=== PATIENT | male | born 1950 | race Caucasian/White ===

== ENCOUNTER → 2024-09-22 09:25 | Day surgery (SDC) | payer BC, SELFPAY ==
[2024-09-22] MEDS: BICITRA 30 ML PO ×2 (10:34→10:35)
--- NOTE | 2024-09-22 11:28 | ITS.CL.CARDI ---
[employer] [facility] [employer] - Cardioversion
Cardioversion
Procedure Report:
Date of Procedure: 09/22/24
Procedure: Cardioversion
Indication: Symptomatic atrial fibrillation
Performing Physician: Ajay Richard MD
Technique: The patient was brought to the holding area. Signed informed consent was obtained. A time out was called and performed. The patient was anesthetized by the anesthesia service. Anticoagulation status was reviewed and appropriate. R2 pads
were placed anteriorly and posteriorly. A 200 J synchronized biphasic shock restored normal sinus rhythm without significant bradycardia. There were no complications.
Conclusion: Uncomplicated cardioversion from atrial fibrillation to sinus rhythm.
Recommendation: Routine post cardioversion care. Continue medical terminologist anticoagulation.
== END ==
LOC: CATH 09:25
PROVIDERS: ATTENDING PHYSICIAN Internal Medicine Cardiovascular Disease; FAMILY PHYSICIAN Family Medicine; OTHER PHYSICIAN Internal Medicine Cardiovascular Disease
DX: I48.0 Paroxysmal atrial fibrillation (principal); I25.10 Atherosclerotic heart disease of native coronary artery without angina pectoris; I25.2 Old myocardial infarction; I10 Essential (primary) hypertension; E78.00 Pure hypercholesterolemia, unspecified; G47.33 Obstructive sleep apnea (adult) (pediatric); Z87.891 Personal history of nicotine dependence; Z79.01 Long term (current) use of anticoagulants; Z79.82 Long term (current) use of aspirin
CPT/HCPCS: 92960; 93005

== ENCOUNTER 2025-01-12 09:58 | Emergency (ER) | payer BC, SELFPAY ==
[2025-01-12 10:06] VITALS: BP 138/78
[2025-01-12 10:25] VITALS: BP 140/74
--- NOTE | 2025-01-12 10:52 | ED.GENMED ---
History of Present Illness
General
Chief Complaint: Cardiac Symptoms
Source: patient
Exam Limitations: none
Time Seen by Provider: 01/12/25 10:50
Nursing documentation reviewed up to this point in time: agreed with
History of Present Illness
History of Present Illness:
74 yo male w h/o afib on Xarelto, CAD, Cardiac stents, HTN, HLD, ID, BPH, presents for intermittent left arm bicep area pain that became more frequent past several days. States he felt similar when he had triple bypass in 2019. Denies CP, SOB, Abd
pain, n/v/d/c.
States he sleeps with his left arm above his head and notes the pain goes away if he lowers his arm
His 4 mos ago and he is selling his house. Has been doing a lot of cleaning out, lifting heavy bags, he thinks the house has sold so under pressure to get things done and wants to be sure 'I didn't over do it.' Denies neck pain. States the
arm pain is not there now. Last episode was 3 am and it resolved when 'i got my arm down in a good position.'
Past History
Past History
ED Past Medical History: Arrthythmia (Atrial fibrillation), CAD, HTN and Hypercholesterolemia
ED Past Surgical History: Cardiac (CABG May 2019, cardioversion) and Orthopedic
Social History
Tobacco: Non-smoker
Drug: None
Personal:
Living: alone
Employment: Employed
Review of Systems
Review of Systems
Allergies reviewed?: Yes
All Other Systems: ROS reviewed and negative except as documented in HPI and ROS
Constitutional: Denies fever or fatigue
Respiratory: Denies trouble breathing
Cardiac: Denies chest pain, diaphoresis or palpitations
ABD/GI: Denies abdominal pain or nausea
: Reports no symptoms
Musculoskeletal: Reports other (pain upper arm posteriorly, intermittent); Denies edema, neck pain or back pain
Skin: Reports no symptoms
Neurological: Reports no symptoms
Phy Exam
Physical Exam
Physical Exam:
GENERAL: No acute distress. A&Ox3.
CONSTITUTIONAL: Afebrile.
EYES: clear, conjunctivae normal
ENMT: moist mucus membranes, Pharynx nl
RESPIRATORY: Regular respirations, nonlabored, lungs clear.
CARDIOVASCULAR: Regular rate and rhythm, no murmurs, no rubs.
GI: Soft, nontender, normal BS
MUSCULOSKELETAL: Moves with ease. Well perfused.
SKIN: Warm, dry, pink
PSYCH: Normal mood and affect. Well kept, interactive and appropriate
NEUROLOGIC: Awake, alert and oriented. No focal neurological deficits
Course
Orders/Labs/Results
Orders:
Orders
01/12/25 09:59
EKG [Electrocardiogram (*1)] Urgent
Reason for Study: Chest Pain
01/12/25 10:00
EKG- Treatment ONCE
01/12/25 11:03
Complete Blood Count/With Diff Urgent
Comprehensive Metabolic Panel Urgent
Troponin I Urgent
Abnormal Lab Results
01/12/25
11:03
MCH 31.2 H pg
(27.0-31.0)
Absolute Neuts (auto) 6.7 H 10^3/uL
(1.4-6.5)
Neutrophils % 76.0 H %
(42.2-75.2)
Lymphocytes % 16.1 L %
(20.5-51.1)
Glucose 133 H mg/dl
(70-99)
Total Bilirubin 1.5 H mg/dl
(0.2-1.3)
01/12/25 11:03
01/12/25 11:03
Vital Signs
Initial and Last Documented VS:
Initial Vital Signs
Temp Pulse Resp BP Pulse Ox
98.0 F 72 16 138/78 98
01/12/25 10:06 01/12/25 10:06 01/12/25 10:06 01/12/25 10:06 01/12/25 10:06
Last Documented Vital Signs
Temp Pulse Resp BP Pulse Ox
98.0 F 58 17 154/80 94
01/12/25 10:06 01/12/25 12:58 01/12/25 12:58 01/12/25 12:58 01/12/25 12:58
MDM/Problems Addressed
Differential Diagnosis Includes:
ACS, cervical radiculopathy, musculoskeletal arm pain
MDM/Problems Addressed:
74 yo male w h/o afib on Xarelto, CAD, Cardiac stents, HTN, HLD, ID, BPH, presents for intermittent left arm bicep area pain that became more frequent past several days. States he felt similar when he had triple bypass in 2019. Denies CP, SOB, Abd
pain, n/v/d/c.
States he sleeps with his left arm above his head and notes the pain goes away if he lowers his arm
His 4 mos ago and he is selling his house. Has been doing a lot of cleaning out, lifting heavy bags, he thinks the house has sold so under pressure to get things done and wants to be sure 'I didn't over do it.' Denies neck pain. States the
arm pain is not there now. Last episode was 3 am and it resolved when 'i got my arm down in a good position.'
Afebrile, NAD
EKG sinus rhythm with first-degree block, occasional PVCs, LBBB, no significant change from previous
12:00 p.m.
CBC unremarkable
CMP unremarkable
Troponin WNL
Pt informed of results. Symptoms have been there for a week. Normal troponin, no CP or SOB. Pain relieved with position change. No indication of cardiac etiology.
Most likely musculoskeletal from overuse and positional, consider cervical radiculopathy
*EKG
EKG Intrepretation Date: 01/12/25
Interpretation: abnormal
Comparison EKG: changes noted (PVCs)
Heart Rate: 67
Rate: normal
Rhythm: sinus
[place]: normal axis
Interval: first degree heart block
QRS Pattern: left bundle branch block
Ischemia: no ischemia
*Critical Care Note
Total Time (30-74mins, 75-104mins- exclusive of procedures): Not Applicable
ED Attending Note
-
Portions of this chart may have been created with voice recognition software.� Occasional wrong word or��sound alike� substitutions may have occurred due to the inherent limitations of voice recognition software.
Discharge Plan
Departure
Patient Disposition: Home (Routine Discharge)
Date of Disposition: 01/12/25
Time of Disposition: 12:16
Patient with high blood pressure during this ER visit?: No
Condition: Good
Discharge Problem:
Left upper arm pain
Instructions: Radiculopathy of the neck and back (including sciatica), Musculoskeletal Pain
Prescriptions:
No Action
aspirin 81 MG tablet,delayed release (DR/EC)
81 mg PO DAILY
tamsulosin 0.4 MG capsule
0.4 mg PO DAILY
Xarelto 20 MG tablet
20 mg PO QPM
atorvastatin 40 MG tablet
40 mg PO QPM Qty: 30 3RF
finasteride 5 MG tablet
5 mg PO DAILY 0RF
furosemide 40 MG tablet
40 mg PO DAILY
metoprolol succinate 50 MG tablet extended release 24 hr
50 mg PO DAILY
potassium chloride [Klor-Con M20] 20 MEQ tablet,ER particles/crystals
20 meq PO DAILY
amiodarone [Pacerone] 200 MG tablet
200 mg PO BID
losartan-hydrochlorothiazide 1 TAB tablet
1 tab PO DAILY
acetaminophen [Tylenol] 325 MG capsule
650 mg PO Q6HPRN PRN (Reason: pain)
Referrals:
Herminio Everett MD [Family Provider] - Follow up in 1 week
Activity Restrictions/Additional Instructions:
As we discussed, nothing worrisome in your workup here today. Specifically, no sign of heart attack or injury.
The arm pain may simply be from overuse or may be radiating from your neck.
Tylenol 1000 mg up to 3 times a day as needed for pain.
Avoid raising arm over your head for long periods as this aggravates the pain
See your doctor in one week if you still have symptoms
Interventions
Interventions:
*Risk Screen - Suicide Last Done: 01/12/25 10:06
*General Assessment Last Done: 01/12/25 11:05
*Neglect/Abuse Screening Last Done: 01/12/25 10:06
*ED- Fall Risk Assessment Last Done: 01/12/25 11:05
*ED COVID-19 Vaccine History Last Done: 01/12/25 11:05
*Nursing Disposition Last Done: 01/12/25 13:12
ED- Pulmonary Assessment Last Done: 01/12/25 11:06
ED- Cardiac Assessment Last Done: 01/12/25 11:06
Discharge Date and Time
Discharge Date/Time: 01/12/25 13:13
Print Language: GUINEAN
[2025-01-12 11:00] VITALS: BP 145/77
[2025-01-12 11:05] VITALS: BMI 36.0
[2025-01-12 11:19] LABS: % Basophils 0.5 % (0-2); % Eosinophils 0.6 % (0-6); % Immature Granulocytes 0.5 % (0-0.5); % Lymphocytes 16.1 % (20.5-51.1); % Monocytes 6.3 % (1.7-9.3); Absolute Eosinophils 0.1 10^3/uL (0-0.7); Absolute Lymphocytes 1.4 10^3/uL (1.2-3.4); Absolute Monocytes 0.6 10^3/uL (0.1-0.6); Absolute Neutrophils 6.7 10^3/uL (1.4-6.5); Hemoglobin 16.4 g/dL (13.0-18.0); Mean Corp Hgb Conc. 34.2 g/dL (33.0-37.0); Mean Corpuscular Hgb 31.2 pg (27.0-31.0); Mean Corpuscular Volume 91.4 fL (80.0-94.0); Mean Platelet Volume 9.6 fL (7.4-10.4); Nucleated Red Blood Cells % 0 % (-); Platelet Count 181 10^3/uL (130-400); Red Blood Cell Count 5.25 10^6/uL (4.70-6.10); Red Cell Dist. Width 13.8 % (11.5-14.5); White Blood Cell Count 8.7 10^3/uL (4.8-10.8)
[2025-01-12 11:31] LABS: ALT (SGPT) 25 U/L (0-50); AST (SGOT) 24 U/L (17-59); Albumin 4.1 g/dl (3.5-5.0); Alkaline Phosphatase 41 U/L (38-126); Blood Urea Nitrogen 16 mg/dl (9-20); Calcium 9.7 mg/dl (8.4-10.2); Carbon Dioxide 28 mmol/L (22-30); Chloride 106 mmol/L (98-107); Estimated Creatinine Clearance 81 ml/min; Glucose 133 mg/dl (70-99); Potassium 3.6 mmol/L (3.5-5.1); Sodium 141 mmol/L (135-145); Total Bilirubin 1.5 mg/dl (0.2-1.3); Total Protein 6.3 g/dl (6.3-8.2); eGFR > 60.00
[2025-01-12 11:42] LABS: Troponin I 0.014 ng/ml
[2025-01-12 12:00] VITALS: BP 146/75
[2025-01-12 12:58] VITALS: BP 154/80
== END 2025-01-12 13:13 | disposition home or self-care (01) ==
LOC: EMR 09:58
PROVIDERS: EMERGENCY PHYSICIAN Student in an Organized Health Care Education/Training Program; FAMILY PHYSICIAN Family Medicine
DX: M79.622 Pain in left upper arm (principal); I25.10 Atherosclerotic heart disease of native coronary artery without angina pectoris; I10 Essential (primary) hypertension; E78.00 Pure hypercholesterolemia, unspecified
CPT/HCPCS: 99284; 80053; 84484; 85025; 93005